=== PATIENT | female | born 1980 | race Caucasian/White ===

== ENCOUNTER → 2016-11-14 | Outpatient (CLI) | payer SELFPAY | LOC: RAD 09:25 | PROVIDERS: ATTEND Nurse Practitioner Women's Health | DX: Z34.81 Encounter for supervision of other normal pregnancy, first trimester (principal) | CPT/HCPCS: 76801 ==

== ENCOUNTER 2017-03-04 16:42 | Outpatient (CLI) | payer MEDICAID | END 2017-03-04 17:03 | disposition home or self-care (01) | LOC: LC 16:42 | PROVIDERS: ATTEND Obstetrics & Gynecology | PROC: 4A1HXCZ Monitoring of Products of Conception, Cardiac Rate, External Approach (ICD-10-PCS; principal; 2017-03-04) | DX: O36.8120 Decreased fetal movements, second trimester, not applicable or unspecified (principal); Z3A.26 26 weeks gestation of pregnancy ==

== ENCOUNTER 2017-04-20 16:10 | Outpatient (CLI) | payer MEDICAID ==
[2017-04-20 17:44] LABS: APPEARANCE,URINE CLEAR; BILIRUBIN,URINE NEGATIVE (NEGATIVE); GLUCOSE, URINE NEGATIVE (NEGATIVE); KETONES,URINE NEGATIVE (NEGATIVE); LEUKOCYTE ESTERASE,URINE SMALL (NEGATIVE); NITRITE,URINE NEGATIVE (NEGATIVE); PROTEIN,URINE NEGATIVE (NEGATIVE); URINE SPECIFIC GRAVITY 1.003; UROBILINOGEN,URINE NEGATIVE mg/dL (<2.0)
[2017-04-20 18:09] LABS: URINE BARBITURATES SCREEN NEGATIVE; URINE METHADONE SCREEN NEGATIVE; URINE OPIATES LOW NEGATIVE; URINE PHENCYCLIDINE SCREEN NEGATIVE
--- NOTE | 2017-04-20 19:37 | Non Stress Test Report ---
Non Stress Test Datetime Report Generated by CPN: 04/20/2017 19:37 DEMOGRAPHIC EGA NST: 32.4 INDICATION Indication for Study: Other Indication for Study (NST) Other: LABOR CHECK- EXCESSIVE MOVEMENT MONITORING Monitor Explained: Monitor Explained; Test Explained; Patient Verbalized Understanding Time on Monitor: 04/20/2017 16:09 Time off Monitor: 04/20/2017 17:02 NST Duration: 53 NST INTERVENTIONS NST Interventions: PO Hydration; Reposition Patient Physician Notified NST: J APODACA, CNM BABY A: [id number] BABY A Movement : Present Contraction Frequency : NONE FHR Baseline : 135 Accelerations : 15X15 Decelerations : None Variability : Moderate 6-25bpm NST Review: Meets Criteria for Reactive NST NST Review and Verified By : SOHAIL Gonzalez Results: Reactive NST REPORT Report Trigger: Send Report
== END 2017-04-20 17:12 | disposition home or self-care (01) ==
LOC: LC 16:10
PROVIDERS: ATTEND Obstetrics & Gynecology
PROC: 4A1HXCZ Monitoring of Products of Conception, Cardiac Rate, External Approach (ICD-10-PCS; principal; 2017-04-20)
DX: O26.893 Other specified pregnancy related conditions, third trimester (principal); Z3A.32 32 weeks gestation of pregnancy
CPT/HCPCS: 59025; 80307; 81001

== ENCOUNTER 2017-04-30 14:28 | Outpatient (CLI) | payer MEDICAID | END 2017-04-30 15:10 | disposition home or self-care (01) | LOC: LC 14:28 | PROVIDERS: ATTEND Obstetrics & Gynecology | PROC: 4A1HXCZ Monitoring of Products of Conception, Cardiac Rate, External Approach (ICD-10-PCS; principal; 2017-04-30) | DX: O99.333 Smoking (tobacco) complicating pregnancy, third trimester (principal); Z3A.34 34 weeks gestation of pregnancy | CPT/HCPCS: 59025; 82962 ==

== ENCOUNTER 2017-05-28 14:55 | Outpatient (CLI) | payer MEDICAID ==
--- NOTE | 2017-05-28 15:03 | Non Stress Test Report ---
Non Stress Test Datetime Report Generated by CPN: 05/28/2017 15:03 DEMOGRAPHIC EGA NST: 34.0 INDICATION Indication for Study: Ordered by Provider; Other Indication for Study (NST) Other: AMA, GDM MONITORING Monitor Explained: Monitor Explained; Test Explained; Patient Verbalized Understanding Time on Monitor: 04/30/2017 14:38 Time off Monitor: 04/30/2017 15:07 NST Duration: 29 NST INTERVENTIONS NST Interventions: PO Hydration; Reposition Patient Physician Notified NST: J Marin CNM BABY A: [id number] BABY A Movement : Present Contraction Frequency : none FHR Baseline : 135 Accelerations : 15X15 Decelerations : None Variability : Moderate 6-25bpm NST Review: Meets Criteria for Reactive NST NST Review and Verified By : Melly Bettencourt RNC NST Results: Reactive NST COMMENTS NST Comments: J Marin CNM reviewed strip NST REPORT Report Trigger: Send Report
--- NOTE | 2017-05-28 15:57 | Non Stress Test Report ---
Non Stress Test Datetime Report Generated by CPN: 05/28/2017 15:57 DEMOGRAPHIC EGA NST: 38.0 INDICATION Indication for Study: Ordered by Provider MONITORING Monitor Explained: Monitor Explained; Test Explained; Patient Verbalized Understanding Time on Monitor: 05/28/2017 15:04 Time off Monitor: 05/28/2017 15:24 NST Duration: 20 NST INTERVENTIONS NST Interventions: None Physician Notified NST: K Feliciano CNM BABY A Movement : Present Contraction Frequency : x0 FHR Baseline : 125 Accelerations : 15X15 Decelerations : None Variability : Moderate 6-25bpm NST Review: Meets Criteria for Reactive NST NST Review and Verified By : Lisa Mcmanus RN NST Results: Reactive NST REPORT Report Trigger: Send Report
== END 2017-05-28 15:43 | disposition home or self-care (01) ==
LOC: LC 14:55
PROVIDERS: ATTEND Student in an Organized Health Care Education/Training Program
PROC: 4A1HXCZ Monitoring of Products of Conception, Cardiac Rate, External Approach (ICD-10-PCS; principal; 2017-05-28)
DX: Z34.93 Encounter for supervision of normal pregnancy, unspecified, third trimester (principal)
CPT/HCPCS: 59025

== ENCOUNTER 2017-06-01 14:33 | Outpatient (CLI) | payer MEDICAID | END 2017-06-01 15:30 | disposition home or self-care (01) | LOC: LC 14:33 | PROVIDERS: ATTEND Obstetrics & Gynecology | PROC: 4A1HXCZ Monitoring of Products of Conception, Cardiac Rate, External Approach (ICD-10-PCS; principal; 2017-06-01) | DX: O09.523 Supervision of elderly multigravida, third trimester (principal); O99.332 Smoking (tobacco) complicating pregnancy, second trimester; F17.219 Nicotine dependence, cigarettes, with unspecified nicotine-induced disorders; Z3A.37 37 weeks gestation of pregnancy | CPT/HCPCS: 59025 ==

== ENCOUNTER 2017-10-23 20:32 | Emergency (ER) | payer MEDICAID ==
--- NOTE | 2017-10-23 20:54 | RADIOLOGY REPORT (SQ) ---
EXAM DESCRIPTION: RIBS LEFT W/PA CHEST COMPLETED DATE/TIME: 10/23/2017 8:47 pm REASON FOR STUDY: fall with pain and sob COMPARISON: None. TECHNIQUE: Frontal view of the chest and additional views of the left ribs acquired. NUMBER OF VIEWS: Three view. LIMITATIONS: None. FINDINGS: FRONTAL CXR: No pneumothorax. No pleural effusion. No consolidation. RIBS: No displaced rib fractures. No lytic or blastic bony lesions. OTHER: No other significant finding. IMPRESSION: NO PNEUMOTHORAX. NO DISPLACED RIB FRACTURES. COMMENT: SITE OF TRAUMA/COMPLAINT MARKED/STAMP COMPLETED: YES. TECHNICAL DOCUMENTATION: JOB ID: [id number] [employer]- All Rights Reserved
[2017-10-23 20:55] VITALS: BP 117/58
--- NOTE | 2017-10-23 21:28 | ER Document Report ---
ED General Pain - General Chief Complaint: Rib Pain Stated Complaint: POSSIBLE BROKEN RIB Time Seen by Provider: 10/23/17 21:27 Notes: This is a well-appearing 37-year-old female to the emergency department chief complaint of left rib pain. States that she tripped and fell on the left chest today. Denies any shortness of breath. Hurts to take a big deep breath. States that she is on Suboxone for narcotic addiction so can take anything strong for the pain. Denies any loss of consciousness. No bleeding. No other injuries at this time. Pain is located underneath the left breast area. TRAVEL OUTSIDE OF THE [place] IN LAST 30 DAYS: No - HPI Onset: This afternoon Onset/Duration: Sudden Quality of pain: Sharp Severity: Moderate Pain Level: 3 - Related Data Allergies/Adverse Reactions: No Known Allergies Allergy (Verified 06/02/17 15:36) Past Medical History - General Information source: Patient - Social History Smoking Status: Current Every Day Smoker Cigarette use (# per day): Yes Smoking Education Provided: No Frequency of alcohol use: None Drug Abuse: None Lives with: Family Family History: Malignancy - osteosarcoma- brother- - Past Medical History Cardiac Medical History: Reports: Hx Hypertension - NOT DURING Denies: Hx Pulmonary Embolism, Hx Heart Murmur Pulmonary Medical History: Denies: Hx Asthma, Hx Sleep Apnea, Hx Tuberculosis Neurological Medical History: Denies: Hx Cerebrovascular Accident, Hx Seizures Endocrine Medical History: Denies: Hx Hyperthyroidism, Hx Hypothyroidism Renal/ Medical History: Denies: Hx Kidney Stones, Hx Ovarian Cysts, Hx Pelvic Inflammatory Disease Malignancy Medical History: Denies: Hx Breast Cancer, Hx Cervical Cancer, Hx Ovarian Cancer GI Medical History: Denies: Hx Gastroesophageal Reflux Disease, Hx Hiatal Hernia , Hx Ulcer Musculoskeltal Medical History: Denies Hx Fibromyalgia Psychiatric Medical History: Reports: Hx Depression Denies: Hx Bipolar Disorder, Hx Post Traumatic Stress Disorder, Hx Schizophrenia Traumatic Medical History: Reports: Hx Fractures - knee, hip, both femurs, wrist Infectious Medical History: Denies: Hx HIV Past Surgical History: Reports: Hx Orthopedic Surgery - rods/plates in - Immunizations Hx Diphtheria, Pertussis, Tetanus Vaccination: No Review of Systems - Review of Systems Constitutional: denies: Chills, Diaphoresis, Fever, Malaise, Weakness EENT: denies: Blurred vision, Double vision, Vertigo Cardiovascular: Chest pain. denies: Palpitations, Heart racing, Dyspnea Respiratory: Hurts to breathe. denies: Cough, Hemoptysis, Short of breath, Wheezing Gastrointestinal: denies: Abdominal pain, Nausea, Vomiting Musculoskeletal: denies: Back pain, Joint pain, Muscle pain, Muscle stiffness Neurological/Psychological: denies: Confusion, Weakness, Gait changes Physical Exam - Vital signs Vitals: Temp Pulse Resp BP Pulse Ox 99.1 F 95 21 H 117/58 L 96 10/23/17 20:51 10/23/17 20:51 10/23/17 20:51 10/23/17 20:51 10/23/17 20:51 Interpretation: Normal - Respiratory Respiratory status: No respiratory distress Chest status: Nontender Breath sounds: Normal Chest palpation: Normal - Cardiovascular Rhythm: Regular Heart sounds: Normal auscultation Murmur: No Notes: There is mild tenderness to palpation of the left anterior lateral posterior chest wall. There is no obvious deformity. There is no crepitus. There is no subcutaneous emphysema. - Abdominal Inspection: Normal Distension: No distension Bowel sounds: Normal Tenderness: Nontender Organomegaly: No organomegaly - Extremities General upper extremity: Normal inspection, Nontender, Normal color, Normal ROM , Normal temperature General lower extremity: Normal inspection, Nontender, Normal color, Normal ROM , Normal temperature, Normal weight bearing. No: Db's sign - Neurological Neuro grossly intact: Yes Cognition: Normal Orientation: AAOx4 Walker Coma Scale Eye Opening: Spontaneous Low Coma Scale Verbal: Oriented Walker Coma Scale Motor: Obeys Commands Walker Coma Scale Total: 15 Speech: Normal Motor strength normal: LUE, RUE, LLE, RLE Sensory: Normal - Skin Skin Temperature: Warm Skin Moisture: Dry Skin Color: Normal Course - Re-evaluation Re-evalutation: 10/23/17 22:11 Ribs w/Chest X-Ray 10/23/17 00:00 IMPRESSION: NO PNEUMOTHORAX. NO DISPLACED RIB FRACTURES. No obvious fracture. No displaced rib fractures. No pneumothorax. Given results of the x-ray. Encouraged her to take big deep breaths. Not requesting anything for pain at this time. Advise her to return in 5-7 days if symptoms persist, develops shortness of breath or any other major symptoms. - Vital Signs Vital signs: Temp Pulse Resp BP Pulse Ox 99.1 F 95 21 H 117/58 L 96 10/23/17 20:51 10/23/17 20:51 10/23/17 20:51 10/23/17 20:51 10/23/17 20:51 Discharge - Discharge Clinical Impression: Rib contusion Qualifiers: Encounter type: initial encounter Laterality: left Qualified Code(s): S20.212A - Contusion of left front wall of thorax, initial encounter Condition: Good Disposition: HOME, SELF-CARE Instructions: Rib Injuries and Fractures ([facility]) Referrals: POPPY NORRIS DO [Primary Care Provider] - Follow up as needed
== END 2017-10-23 22:25 | disposition home or self-care (01) ==
LOC: ER 20:32
DX: S20.212A Contusion of left front wall of thorax, initial encounter (principal); W01.198A Fall on same level from slipping, tripping and stumbling with subsequent striking against other object, initial encounter; F17.210 Nicotine dependence, cigarettes, uncomplicated; F19.20 Other psychoactive substance dependence, uncomplicated; Z79.891 Long term (current) use of opiate analgesic; I10 Essential (primary) hypertension
CPT/HCPCS: 99283

== ENCOUNTER 2018-01-30 14:01 | Emergency (ER) | payer MEDICAID ==
--- NOTE | 2018-01-30 14:31 | ER Document Report ---
HPI - HPI Pain Level: 2 Notes: Patient is a 37-year-old female with a history of mental health disorders who presents to the ED complaining of urinary burning, urgency, frequency, voiding small amounts 1 day with noted hematuria starting this morning. Patient states that she is also on her period, but states that she had a tampon in when she noticed the pink tinge to her urine. She has otherwise been eating and drinking without any difficulties. She is having normal bowel movements. Patient states that she is not concerned with any STD or STI. She has not noticed any other vaginal discharge, odor, or urethral discharge. Denies any drug allergies. Patient does admit to smoking but denies IV drug use. Denies any headache, fever, neck pain, URI, sore throat, chest pain, palpitations, syncope, cough, shortness of breath, wheeze, dyspnea, abdominal pain, nausea/ vomiting/diarrhea, urinary retention, loss of control of bowel or bladder, numbness/tingling, saddle anesthesia, muscle paralysis/weakness, or rash. - ROS Systems Reviewed and Negative: Yes All other systems reviewed and negative - REPRODUCTIVE Reproductive: REPORTS: : Past Medical History - Social History Smoking Status: Current Every Day Smoker Family History: Malignancy - osteosarcoma- brother- - Past Medical History Cardiac Medical History: Reports: Hx Hypertension - NOT DURING Denies: Hx Pulmonary Embolism, Hx Heart Murmur Pulmonary Medical History: Denies: Hx Asthma, Hx Sleep Apnea, Hx Tuberculosis Neurological Medical History: Denies: Hx Cerebrovascular Accident, Hx Seizures Endocrine Medical History: Reports: Hx Diabetes Mellitus Type 2. Denies: Hx Hyperthyroidism, Hx Hypothyroidism Renal/ Medical History: Denies: Hx Kidney Stones, Hx Ovarian Cysts, Hx Peritoneal Dialysis, Hx Pelvic Inflammatory Disease Malignancy Medical History: Denies: Hx Breast Cancer, Hx Cervical Cancer, Hx Ovarian Cancer GI Medical History: Denies: Hx Gastroesophageal Reflux Disease, Hx Hiatal Hernia , Hx Ulcer Musculoskeltal Medical History: Denies Hx Fibromyalgia Psychiatric Medical History: Reports: Hx Depression Denies: Hx Bipolar Disorder, Hx Post Traumatic Stress Disorder, Hx Schizophrenia Traumatic Medical History: Reports: Hx Fractures - knee, hip, both femurs, wrist Infectious Medical History: Denies: Hx HIV Past Surgical History: Reports: Hx Orthopedic Surgery - rods/plates in - Immunizations Hx Diphtheria, Pertussis, Tetanus Vaccination: No Vertical Provider Document - CONSTITUTIONAL Agree With Documented VS: Yes Notes: PHYSICAL EXAMINATION: GENERAL: Well-appearing, well-nourished and in no acute distress. LUNGS: Breath sounds clear to auscultation bilaterally and equal. No wheezes rales or rhonchi. HEART: Regular rate and rhythm without murmurs, rubs, gallops. ABDOMEN: Soft, nontender, nondistended abdomen. No guarding, no rebound. No masses appreciated. Normal bowel sounds present. No CVA tenderness bilaterally. Musculoskeletal: FROM to passive/active. Strength 5+/5. Extremities: No cyanosis, clubbing, or edema b/l. Peripheral pulses 2+. Capillary refill less than 3 seconds. NEUROLOGICAL: Normal speech, normal gait. Normal sensory, motor exams PSYCH: Normal mood, normal affect. SKIN: Warm, Dry, normal turgor, no rashes or lesions noted. - INFECTION CONTROL TRAVEL OUTSIDE OF THE [place] IN LAST 30 DAYS: No Course - Re-evaluation Re-evalutation: 01/30/18 15:30 Patient is an afebrile, well-hydrated, 37-year-old female who presents to the ED with acute UTI. Vitals are acceptable. PE is otherwise unremarkable. See urinalysis results. Urine cultures pending. HCG neg. Patient did have hematuria which could be secondary to her being on her menstrual period. Patient is tolerating p.o. without any difficulties. I will send her home with a prescription for Keflex to take as directed. Low suspicion for any pyelonephritis, sepsis, urosepsis, acute abdomen, or other systemic emergent condition at this time. Conservative measures otherwise for symptoms. Recheck with your PCM in 3-5 days. Consider consult with a urologist if needed. Return to the ED with any worsening/concerning symptoms otherwise as reviewed discharge. Patient is in agreement. Discharge - Discharge Clinical Impression: UTI (urinary tract infection) Qualifiers: Urinary tract infection type: site unspecified Hematuria presence: with hematuria Qualified Code(s): N39.0 - Urinary tract infection, site not specified Condition: Stable Disposition: HOME, SELF-CARE Instructions: Cephalexin ([facility]), Urinary Tract Infection ([facility]) Additional Instructions: Push fluids (i.e. water, cranberry juice) Proper hygenic technique Keep the skin clean Tylenol/ibuprofen as needed May use over the counter AZO for burning with urination x2-3 days Take medications as directed F/u with your PCM in 3-5 days for a recheck Consider consult with a Urologist for ongoing/worsening symptoms. Return to the ED with any worsening symptoms and/or development of fever, headache, chest pain, palpitations, syncope, shortness of breath, trouble breathing, abdominal pain, n/v/d, blood in stool/urine, loss of control of bowel /bladder, urinary retention, or other worsening symptoms that are concerning to you. Prescriptions: Cephalexin Monohydrate [Keflex 500 mg Capsule] 500 mg PO BID #14 capsule Forms: Smoking Cessation Education Referrals: [facility] [Provider Group] - Follow up as needed
[2018-01-30 14:42] LABS: APPEARANCE,URINE SLIGHTLY-CLOUDY; BILIRUBIN,URINE NEGATIVE (NEGATIVE); COLOR,URINE YELLOW; GLUCOSE, URINE NEGATIVE (NEGATIVE); KETONES,URINE NEGATIVE (NEGATIVE); LEUKOCYTE ESTERASE,URINE LARGE (NEGATIVE); NITRITE,URINE NEGATIVE (NEGATIVE); PROTEIN,URINE 30 mg/dL (NEGATIVE); URINE SPECIFIC GRAVITY 1.001; UROBILINOGEN,URINE NEGATIVE mg/dL (<2.0)
[2018-01-30 15:45] VITALS: BP 115/64
== END 2018-01-30 15:45 | disposition home or self-care (01) ==
LOC: ER 14:01
DX: N39.0 Urinary tract infection, site not specified (principal); R31.9 Hematuria, unspecified; I10 Essential (primary) hypertension; E11.9 Type 2 diabetes mellitus without complications
CPT/HCPCS: 81001; 81025; 87086; 87088; 99283